=== PATIENT | male | born 2000 | race Caucasian/White ===

== ENCOUNTER 2025-03-04 21:59 | Observation (INO) ==
[2025-03-04 22:11] VITALS: BMI 18.8
[2025-03-04] MEDS ORDERED: ZOFRAN INJ 4 MG VIAL ONE (23:03)
[2025-03-04] MEDS ORDERED: NS 1,000 ML IV 1,000 ML ONE (23:03)
--- NOTE | 2025-03-04 23:03 | DR.N/VMALE ---
HPI Time Seen Time Seen by Provider: 03/04/25 23:03 Primary Care Physician Primary Care Physician: CHARLES HPI Comment HPI Comment: According to pt he was well before 5 days ago. Started with cold like symptoms with sore throat. He was seen in another ER 2 days go. Did have swab done for covid and flu which patient indicates they were neg. However, he cont. to experience nausea vomiting and has not been able to keep anything down. Concerned about dehydration. Here to have him checked. Not eaten anything unusual or different. No one at home with similar symptoms Complaints Chief Complaint Doctors Comments: vomiting ,abdominal pain Chief Complaint:: KATHY C/O HE STARTED WITH SORE THROAT WHOCH HAS PROGRESSED TO VOMITTING. PATIENT STATES HE HAS NOT BEEN ABLE TO KEEP ANYTHING DOWN FOR THE PAST 5 DAYS. COVID-19 Coronavirus risk:travel/contact w/high risk person: No Has patient experienced Coronavirus symptoms: No Reviewed Nurses Notes Reviewed: Yes Source History Provided: Patient Mode of Arrival Mode of Arrival: Ambulatory Timing Onset of Chief Complaint: 02/27/25 Context Onset: Spontaneous Recent: None History of: None Quality Quality: Bilious and Food Particles Associated Signs and Symptoms Abdominal Pain Quality: Aching Abdominal Pain Location: Diffuse Symptoms: Abdominal Pain PMH PMH Past Medical History: No Past Surgical History: No Family History History of Family Medical Conditions: Yes Family Medical History: Diabetes Mellitus, Cancer and Hypertension Social History Does patient currently use any type of tobacco product: Yes Have you used tobacco products in the last 12 months: Yes Type of Tobacco Use: Cigarettes Does any household member use tobacco: Yes Alcohol Use: None Do you use any recreational Drugs:: No Lives With: Family Lives Where: Home Travel Risk Coronavirus risk:travel/contact w/high risk person: No Has patient experienced Coronavirus symptoms: No Infectious screening In the last 2 months have you had wt loss of >10#?: NO Have you had fever, night sweats or hemotysis?: No Have you traveled outside the country in the last 6 months?: No Isolation: Standard ROS Review of Systems Constitutional: Chills, Malaise and Fatigue Eyes: No Symptoms Reported ENTM: No Symptoms Reported Respiratoy: No Symptoms Reported Cardiovascular: No Symptoms Reported Gastrointestinal/Abdominal: Abdominal Pain, Nausea and Vomiting Genitourinary: No Symptoms Reported Neurological: No Symptoms Reported Musculoskeletal: No Symptoms Reported Integumentary: No Symptoms Reported Hematologic/Lymphatic: No Symptoms Reported Endocrine: No Symptoms Reported PE Vital Signs Vitals: Vital Signs Temperature 97.6 F Pulse Rate [Right Radial] 74 Pulse Rate 104 Respiratory Rate 20 Respiratory Rate 20 Blood Pressure [Left Arm] 111/53 Blood Pressure 107/56 O2 Sat by Pulse Oximetry 100 O2 Sat by Pulse Oximetry 99 General Limitations: No Limitations General Appearance: Alert and Anxious Head Head Exam: Normal Inspection, Atraumatic and Normocephalic Eyes Eye exam: Normal Appearance, PERRL and EOMI ENT ENT Exam: Mucous Membranes Dry and Other (mildly erythematous oropharynx ) Neck Neck Exam: Normal Inspection Chest Chest Inspection: Normal Inspection and Symmetric Chest Wall Rise Respiratory Respiratory Exam: Normal Lung Sounds Bilat Respiratory Exam: Bilateral: Clear to Auscultation Cardiovascular Cardiovascular Exam: +S1 and +S2 Abdominal Exam Abdominal Exam: Normal Inspection, Normal Bowel Sounds, Soft and Tenderness Abdominal Tenderness: Diffuse and Moderate Extremities Extremities Exam: Normal Inspection Neurologic Neurological Exam: Alert Skin Skin Exam: Normal Color MDM Differential Diagnosis Differential Diagnosis: Considerations may Include:: Gastroenteritis, Pancreatitis and Other (strep throat ) Differential Diagnosis Comment: Dehydration COURSE Treatment Treatment: cbc,cmp lipase,rapid strep ,iv fluids,IV zofran ROR Labs Reviewed Laboratory Results Reviewed?: Yes 03/04/25 23:06 03/04/25 23:06 Laboratory: WBC 7.2 X10^3/uL (3.6-10.0) 03/04/25 23:06 RBC 4.86 X10^6/uL (4.7-6.0) 03/04/25 23:06 Hgb 16.4 g/dL (13.5-18.0) 03/04/25 23:06 Hct 47.4 % (42.0-54.0) 03/04/25 23:06 MCV 97.5 fL (80.0-100.0) 03/04/25 23:06 MCH 33.8 pg (27.0-34.0) 03/04/25 23:06 MCHC 34.7 g/dL (33.0-35.0) 03/04/25 23:06 RDW 14.7 % (11.6-16.5) 03/04/25 23:06 Plt Count 175 X10^3/uL (150.0-450.0) 03/04/25 23:06 MPV 9.2 fL (7.4-11.0) 03/04/25 23:06 Neut % (Auto) 73.6 % (42.0-75.0) 03/04/25 23:06 Lymph % (Auto) 17.3 % (21.0-51.0) L 03/04/25 23:06 [place] % (Auto) 7.9 % (0.0-13.0) 03/04/25 23:06 Eos % (Auto) 0.8 % (0.9-2.9) L 03/04/25 23:06 Baso % (Auto) 0.4 % (0.2-1.0) 03/04/25 23:06 Neut # (Auto) 5.3 x10^3/uL (2.2-4.8) H 03/04/25 23:06 Lymph # (Auto) 1.2 X10^3/uL (1.3-2.9) L 03/04/25 23:06 [place] # (Auto) 0.6 x10^3/uL (0.3-0.8) 03/04/25 23:06 Eos # (Auto) 0.1 x10^3/uL (0.0-0.2) 03/04/25 23:06 Baso # (Auto) 0.0 X10^3/uL (0.0-0.1) 03/04/25 23:06 Absolute Nucleated RBC 0.1 /100WBC 03/04/25 23:06 Sodium 139 mmol/L (136-145) 03/04/25 23:06 Corrected Sodium TNP 03/04/25 23:06 Potassium 2.7 mmol/L (3.5-5.1) L* 03/04/25 23:06 Chloride 98 mmol/L (98-107) 03/04/25 23:06 Carbon Dioxide 28.1 mmol/L (21-32) 03/04/25 23:06 BUN 8 mg/dL (7-18) 03/04/25 23:06 Creatinine 1.25 mg/dL (0.70-1.30) 03/04/25 23:06 Est GFR (MDRD) Af Amer > 60 (>60) 03/04/25 23:06 Est GFR (MDRD) Non-Af > 60 (>60) 03/04/25 23:06 Glucose 103 mg/dL (65-99) H 03/04/25 23:06 Calcium 9.3 mg/dL (8.5-10.1) 03/04/25 23:06 Corrected Calcium TNP 03/04/25 23:06 Total Bilirubin 1.50 mg/dL (0.2-1.0) H 03/04/25 23:06 Direct Bilirubin 0.40 mg/dL (0-0.2) H 03/04/25 23:06 AST 60 Units/L (15-37) H 03/04/25 23:06 ALT 66 Units/L (12-78) 03/04/25 23:06 Alkaline Phosphatase 103 Units/L (46-116) 03/04/25 23:06 Total Protein 8.8 g/dL (6.4-8.2) H 03/04/25 23:06 Albumin 4.8 g/dL (3.4-5.0) 03/04/25 23:06 Globulin 4.0 g/dL (2.5-4.5) 03/04/25 23:06 Albumin/Globulin Ratio 1.2 Ratio (1.1-2.1) 03/04/25 23:06 Lipase 39 Units/L (16-77) 03/04/25 23:06 S. pyogenes (TEM-PCR) Not detected (NOT DETECT) 03/04/25 23:07 Opioid Opioid Risk Tool Age ([place] if 16-45): Yes History of Preadolescent Sexual Abuse: No Total: 1 Total Score Risk Category: Low Risk Copyright: Mauricio MIMS predicting aberrant behaviors Discharge Plan Diagnosis Discharge Problem: Acute hypokalemia, Acute dehydration, Nausea & vomiting, Fatty liver, Abnormal bilirubin test Discharge Plan Patient Disposition: ADMITTED INPATIENT Condition: Stable Prescriptions: No Action [facility] Concerns: Post Hospitalization: new medications and changes needed to prevent readmission or further decline. Pt educated and given instructions on all concerns. Plan of Treatment: Continue with present treatment and follow up plan. Pt is to keep follow up appointment as instructed and take medications as ordered. Orders to Discharge Patient Discharge Orders: Transfer (Routine); Ordered 03/05/25 Ordered By: Parvez Yang Follow ups/Referrals Follow ups/Referrals: [facility],None [Primary Care Provider] - 3 days Instructions Stand Alone Forms: Find Help Web Site, Post Hospital Follow Up Care Print Language: [place] ADDITIONAL NOTES Additional Notes Additional Notes: potassium 2.7 ,Total bilirubin 1.5. Direct 0.4. CT abdomen and pelvis fatty liver, strep neg. Spoke with dr Baca agreed to have patient admitted for treatment of hypokalemia and dehydration
[2025-03-04] MEDS: ZOFRAN INJ 4 MG VIAL IVP ONE (23:13)
[2025-03-04] MEDS: NS 1,000 ML IV 1,000 ML IV ONE (23:13)
[2025-03-04 23:18] LABS: BASOPHILS % (AUTO) 0.4 % (0.2-1.0); EOSINOPHILS # (AUTO) 0.1 x10^3/uL (0.0-0.2); EOSINOPHILS % (AUTO) 0.8 % (0.9-2.9); HEMATOCRIT 47.4 % (42.0-54.0); HEMOGLOBIN 16.4 g/dL (13.5-18.0); LYMPHOCYTES # (AUTO) 1.2 X10^3/uL (1.3-2.9); LYMPHOCYTES % (AUTO) 17.3 % (21.0-51.0); MEAN CORPUSCULAR HEMOGLOBIN 33.8 pg (27.0-34.0); MEAN CORPUSCULAR HGB CONC 34.7 g/dL (33.0-35.0); MEAN CORPUSCULAR VOLUME 97.5 fL (80.0-100.0); MEAN PLATELET VOLUME 9.2 fL (7.4-11.0); MONOCYTES # (AUTO) 0.6 x10^3/uL (0.3-0.8); MONOCYTES % (AUTO) 7.9 % (0.0-13.0); NEUTROPHILS # (AUTO) 5.3 x10^3/uL (2.2-4.8); NEUTROPHILS % (AUTO) 73.6 % (42.0-75.0); PLATELET COUNT 175 X10^3/uL (150.0-450.0); RED BLOOD COUNT 4.86 X10^6/uL (4.7-6.0); RED CELL DISTRIBUTION WIDTH 14.7 % (11.6-16.5); WHITE BLOOD COUNT 7.2 X10^3/uL (3.6-10.0)
[2025-03-04 23:35] LABS: ALANINE AMINOTRANSFERASE 66 Units/L (12-78); ALBUMIN 4.8 g/dL (3.4-5.0); ALKALINE PHOSPHATASE 103 Units/L (46-116); ASPARTATE AMINO TRANSFERASE 60 Units/L (15-37); BLOOD UREA NITROGEN 8 mg/dL (7-18); CALCIUM 9.3 mg/dL (8.5-10.1); CARBON DIOXIDE 28.1 mmol/L (21-32); CHLORIDE 98 mmol/L (98-107); CREATININE 1.25 mg/dL (0.70-1.30); GLUCOSE 103 mg/dL (65-99); LIPASE 39 Units/L (16-77); SODIUM 139 mmol/L (136-145); TOTAL PROTEIN 8.8 g/dL (6.4-8.2); eGFR NON BLACK RACES > 60 (>60)
[2025-03-04 23:38] LABS: POTASSIUM 2.7 mmol/L (3.5-5.1)
--- NOTE | 2025-03-04 23:47 | EKG ---
Test Reason : HYPOKALEMIA Blood Pressure : */* mmHG Vent. Rate : 71 BPM Atrial Rate : 71 BPM P-R Int : 186 ms QRS Dur : 112 ms QT Int : 412 ms P-R-T Axes : 27 84 60 degrees QTc Int : 447 ms Normal sinus rhythm Normal ECG No previous ECGs available Confirmed by Larry Salas MD ([id number]) on 03/05/2025 7:10:52 AM Referred By: Confirmed By: Larry Salas MD
[2025-03-04] MEDS: K-RIDER 10 MEQ/100 ML WATER 10 MEQ/100 ML BAG IV ONE (23:53)
[2025-03-04] MEDS: KLOR-CON PO ONE (23:55)
[2025-03-05] MEDS: NS 1,000 ML IV 1,000 ML IV SCH (00:11)
--- NOTE | 2025-03-05 00:50 | CT ---
EXAM: CT ABDOMEN AND PELVIS WITHOUT CONTRAST HISTORY: abd pain, vomitting; COMPARISON: None TECHNIQUE: Axial images were obtained of the abdomen and pelvis without IV contrast. Sagittal and coronal reformatted images were provided. All images were reviewed in a variety of windows and levels. RADIATION REDUCTION TECHNIQUE: Automated exposure control, adjustment of the mA or kV according to patient size, or iterative reconstruction techniques were used. FINDINGS: Please note that lack of IV contrast does limit evaluation of the soft tissues and vascular detail. The visualized lower lung zones are clear. The heart size is within normal limits. There is no evidence of a pericardial effusion. The spleen, pancreas, adrenal glands, and kidneys are grossly unremarkable. The gallbladder is grossly unremarkable. The liver is normal in size and exhibits diffuse hepatic steatosis. There is no evidence of stones or signs of obstructive uropathy. The stomach, small bowel, and colon are grossly unremarkable. There are no inflammatory changes in the right lower quadrant to suggest secondary signs of acute appendicitis. The appendix is not visualized. There is no evidence of retroperitoneal or mesenteric lymphadenopathy. The visualized bones are intact. There are no concerning lytic or blastic lesions identified. IMPRESSION: Diffuse hepatic steatosis. No acute abdominal or pelvic pathology THIS IS AN ELECTRONICALLY VERIFIED FINAL REPORT 03/05/2025 12:46 AM - Electronically signed by Teto Watkins MD
[2025-03-05] MEDS: K-RIDER 10 MEQ/100 ML WATER 10 MEQ/100 ML BAG IV ONE ×3 (01:04→03:46)
[2025-03-05 01:31] LABS: CHOL/HDL RATIO 3.5 (0.0-5.0)
[2025-03-05] MEDS ORDERED: ZOFRAN INJ 4 MG VIAL IVP PRN (01:55)
[2025-03-05 03:32] VITALS: PULSE 78; O2SAT 99
[2025-03-05 06:21] LABS: ALANINE AMINOTRANSFERASE 53 Units/L (12-78); ALBUMIN 3.8 g/dL (3.4-5.0); ALKALINE PHOSPHATASE 81 Units/L (46-116); ASPARTATE AMINO TRANSFERASE 44 Units/L (15-37); BLOOD UREA NITROGEN 7 mg/dL (7-18); CALCIUM 8.5 mg/dL (8.5-10.1); CARBON DIOXIDE 26.7 mmol/L (21-32); CHLORIDE 103 mmol/L (98-107); CREATININE 0.96 mg/dL (0.70-1.30); GLUCOSE 88 mg/dL (65-99); POTASSIUM 4.1 mmol/L (3.5-5.1); SODIUM 139 mmol/L (136-145); TOTAL PROTEIN 6.9 g/dL (6.4-8.2); eGFR NON BLACK RACES > 60 (>60)
[2025-03-05 07:41] VITALS: BP 101/58; RESP 21; TEMP 98.5
== END 2025-03-05 11:40 | disposition home or self-care (01) ==
LOC: ER 21:59 → MED/SURG 21:59
PROVIDERS: ADMIT Obstetrics & Gynecology Obstetrics; ATTEND Obstetrics & Gynecology Obstetrics
DX: E80.6 Other disorders of bilirubin metabolism; K59.09 Other constipation; R53.81 Other malaise; R10.84 Generalized abdominal pain; E83.42 Hypomagnesemia; R11.2 Nausea with vomiting, unspecified; Z72.0 Tobacco use; E86.0 Dehydration; E87.6 Hypokalemia; K76.0 Fatty (change of) liver, not elsewhere classified